=== PATIENT | male | born 1965 | race Caucasian/White ===

== ENCOUNTER 2017-12-11 10:49 | Emergency (ER) | payer SELFPAY ==
[~2017-12-11] VITALS: Ht 167.6 cm; Wt 94.2 kg
[2017-12-11] MEDS ORDERED: ATOR40TA70 PO (11:06)
[2017-12-11] MEDS ORDERED: METO1TAB40 PO (11:06)
[2017-12-11] MEDS ORDERED: LISI40TA4 PO (11:06)
[2017-12-11] MEDS ORDERED: AMIT10TA6 PO (11:06)
[2017-12-11] MEDS ORDERED: KEPP500 PO (11:06)
[2017-12-11] MEDS ORDERED: ASPI-1160 PO (11:06)
[2017-12-11] MEDS ORDERED: AMLO10TA80 PO (11:06)
[2017-12-11 11:48] LABS: BASOPHILS % 1.1 % (0.0-2.0); EOSINOPHILS % 3.3 % (0.0-5.0); HEMATOCRIT. 43.6 % (42.0-52.0); HEMOGLOBIN. 14.8 g/dL (14.0-18.0); LYMPHOCYTES % 23.3 % (20.0-50.0); MEAN CORPUSCULAR HEMOGLOBIN 29.4 pg (28.0-32.0); MEAN CORPUSCULAR VOLUME 86.4 fL (80.0-94.0); MEAN PLATELET VOLUME 8.9 fl (7.4-10.4); MONOCYTES % 7.5 % (2.0-8.0); NEUTROPHILS % 64.8 % (40.0-76.0); PLATELET 202 x1000/uL (130-400); RED BLOOD CELL COUNT 5.05 mill/uL (4.7-6.1); RED CELL DISTRIBUTION WIDTH 13.6 % (11.6-14.6)
[2017-12-11 11:59] LABS: CHLORIDE 107 mEq/L (98-107)
[2017-12-11 12:56] LABS: *AMPHETAMINES SCREEN URINE NEGATIVE (NEGATIVE); *BARBITURATES SCREEN URINE NEGATIVE (NEGATIVE); *BENZODIAZEPINES SCREEN URINE NEGATIVE (NEGATIVE); *COCAINE SCREEN URINE NEGATIVE (NEGATIVE); METHADONE URINE SCREEN NEGATIVE (NEGATIVE); OPIATES URINE SCREEN NEGATIVE (NEGATIVE)
[2017-12-11 12:57] LABS: CANNABINOID URINE SCREEN NEGATIVE (NEGATIVE); PHENCYCLIDINE URINE SCREEN NEGATIVE (NEGATIVE)
[2017-12-11] MEDS ORDERED: KETOROLAC 60MG/2ML VIAL IM ONE (13:45)
[2017-12-11 18:59] VITALS: BP 149/91
== END 2017-12-11 19:29 | disposition home or self-care (01) ==
LOC: ER 11:28
DX: R51 Headache (principal); I10 Essential (primary) hypertension; E78.00 Pure hypercholesterolemia, unspecified; Z79.82 Long term (current) use of aspirin
CPT/HCPCS: 36415; 70450; 80053; 80305; 82542; 85025; 96372; 99285; J1885